=== PATIENT | male | born 1960 | race Caucasian/White ===

== ENCOUNTER 2017-07-24 05:55 | Inpatient (IN) ==
[2017-07-24] MEDS ORDERED: FUROSEMIDE 100 MG/10 ML VIAL IV STA (06:24)
[2017-07-24] MEDS ORDERED: FUROSEMIDE 40 MG/4 ML VIAL ONE (06:29)
[2017-07-24 06:57] LABS: Basophils # 0.2 10*3/uL (0.0-0.2); Basophils % 1.4 % (0.0-0.8); Eosinophils # 0.1 10*3/uL (0.0-0.87); Eosinophils % 1.1 % (0.00-10.9); Hematocrit 53.8 VOL% (42.0-52.0); Hemoglobin 18.1 GM/DL (14.0-18.0); Immature Granulocytes % 4.1 %; Immature Granulocytes Absolute 0.47 #; Lymphocytes # 2.2 10*3/uL (1.4-4.0); Lymphocytes % 19.2 % (21.2-54.2); Mean Corpuscular HGB Conc 33.6 GM/DL (32-36); Mean Corpuscular Hemoglobin 33 PG (27-34); Mean Corpuscular Volume 97.5 FL (87-102); Mean Platelet Volume 11.2 FL (9.6-12.0); Monocytes # 0.7 10*3/uL (0.11-0.8); Neutrophils # 7.8 10*3/uL (1.4-7.4); Neutrophils % 68.2 % (38.7-73.9); Platelet Count 175 T/CUMM (130-400); Red Blood Count 5.52 MC/CUMM (3.8-5.5); Red Cell Distribution Width 12.9 % (9.3-17.3); White Blood Count 11.4 T/CUMM (4-12)
[2017-07-24 07:11] LABS: PT Patient Result 10.5 SECS; Partial Thromboplastin Time 25.2 SECS (0-40)
[2017-07-24 07:22] LABS: Albumin 3.6 G/DL (3.4-5.0); Bilirubin,Total 0.5 MG/DL (0.2-1.0); Calcium 8.8 MG/DL (8.5-10.1); Osmolality,Calculated 284.3 MOS/KG (273-304); Potassium 4.4 MMOL/L (3.5-5.1); Total Protein 6.8 G/DL (6.4-8.3); Troponin I Only 0.036 NG/ML (0.00-0.045)
[2017-07-24] MEDS ORDERED: CARVEDILOL 3.125 MG TABLET ONE (08:24)
[2017-07-24] MEDS ORDERED: METOPROLOL TARTRATE 5 MG/5 ML VIAL IV ONE (08:24)
[2017-07-24] MEDS ORDERED: DILTIAZEM 100 MG VIAL.ADD IV ONE (08:30)
[2017-07-24] MEDS ORDERED: ONDANSETRON 4 MG/2 ML VIAL IV PRN (08:57)
[2017-07-24] MEDS ORDERED: ACETAMINOPHEN 325 MG TABLET PO PRN (08:57)
[2017-07-24] MEDS ORDERED: hydrALAZINE 20 MG/1 ML VIAL IV PRN (08:59)
[2017-07-24] MEDS ORDERED: METOPROLOL TARTRATE 5 MG/5 ML VIAL IV STA (09:10)
[2017-07-24] MEDS ORDERED: CARVEDILOL 3.125 MG TABLET PO STA (09:11)
[2017-07-24] MEDS ORDERED: DILTIAZEM 50 MG/10 ML VIAL IV STA (09:15)
[2017-07-24] MEDS ORDERED: DILTIAZEM INJ 100 MG in SODIUM CHLORIDE 0.9% 100 ML IV SCH (09:30)
[2017-07-24] MEDS ORDERED: ENOXAPARIN 40 MG/0.4 ML SYRINGE ONE (10:00)
[2017-07-24] MEDS: ENOXAPARIN 40 MG/0.4 ML SYRINGE SUBCUT SCH (10:14)
[2017-07-24] MEDS: DILTIAZEM 30 MG TABLET PO SCH ×2 (17:22→20:51)
[2017-07-24 19:18] LABS: Troponin I Only 0.026 NG/ML (0.00-0.045)
[2017-07-25 04:24] LABS: Basophils # 0.1 10*3/uL (0.0-0.2); Basophils % 1.1 % (0.0-0.8); Eosinophils # 0.2 10*3/uL (0.0-0.87); Eosinophils % 1.6 % (0.00-10.9); Hematocrit 50.8 VOL% (42.0-52.0); Hemoglobin 17.4 GM/DL (14.0-18.0); Immature Granulocytes % 3.3 %; Immature Granulocytes Absolute 0.38 #; Lymphocytes % 34.1 % (21.2-54.2); Mean Corpuscular HGB Conc 34.3 GM/DL (32-36); Mean Corpuscular Hemoglobin 33 PG (27-34); Mean Corpuscular Volume 95.3 FL (87-102); Mean Platelet Volume 11.5 FL (9.6-12.0); Monocytes # 0.9 10*3/uL (0.11-0.8); Monocytes % 7.7 % (1.7-12.7); Neutrophils # 6.1 10*3/uL (1.4-7.4); Neutrophils % 52.2 % (38.7-73.9); Platelet Count 172 T/CUMM (130-400); Red Blood Count 5.33 MC/CUMM (3.8-5.5); Red Cell Distribution Width 13.2 % (9.3-17.3); White Blood Count 11.6 T/CUMM (4-12)
[2017-07-25 05:01] LABS: Calcium 8.8 MG/DL (8.5-10.1); Magnesium 2.1 MG/DL (1.8-2.4); Osmolality,Calculated 284.1 MOS/KG (273-304); Risk Ratio 5.48; Thyroid Stimulating Hormone 1.02 uIU/ml (0.358-3.74); VLDL CHOLESTEROL 58.8 MG/DL
[2017-07-25 07:58] VITALS: BP 175/94
[2017-07-25] MEDS: DILTIAZEM 30 MG TABLET PO SCH (08:53)
[2017-07-25] MEDS: ENOXAPARIN 40 MG/0.4 ML SYRINGE SUBCUT SCH (08:54)
[2017-07-25] MEDS ORDERED: ATORVASTATIN 20 MG TABLET PO SCH (21:00)
== END 2017-07-25 12:39 | disposition home or self-care (01) | DRG 189 ==
LOC: N.ED 05:55 → N.EDINP 08:36 → N.TELES 13:00
PROVIDERS: ADMIT Internal Medicine; ATTEND Internal Medicine